=== PATIENT | female | born 1975 | race Caucasian/White ===

== ENCOUNTER → 2024-01-22 06:35 | Day surgery (SDC) | payer OTHER, SELFPAY | LOC: GI 06:35 | PROVIDERS: ATTENDING PHYSICIAN Internal Medicine Gastroenterology | DX: D12.7 Benign neoplasm of rectosigmoid junction (principal); Z86.010 Personal history of colon polyps | CPT/HCPCS: 45385; 88305 ==

== ENCOUNTER 2024-01-23 16:35 | Observation (INO) | payer OTHER, SELFPAY ==
[2024-01-23] VITALS (12 sets, daily range): BP systolic 8–144; BP diastolic 78–95
[2024-01-23 11:52] LABS: % Eosinophils 2.4 % (0-6); % Immature Granulocytes 0.1 % (0-0.5); % Monocytes 8.4 % (1.7-9.3); % Neutrophils 60.1 % (42.2-75.2); Absolute Basophils 0.1 10^3/uL (0-0.2); Absolute Eosinophils 0.2 10^3/uL (0-0.7); Absolute Monocytes 0.6 10^3/uL (0.1-0.6); Absolute Neutrophils 4.3 10^3/uL (1.4-6.5); Hematocrit 36.4 % (37.0-47.0); Hemoglobin 12.4 g/dL (12.0-16.0); Mean Corp Hgb Conc. 34.1 g/dL (33.0-37.0); Mean Corpuscular Hgb 30.8 pg (27.0-31.0); Mean Corpuscular Volume 90.5 fL (81.0-99.0); Mean Platelet Volume 10.8 fL (7.4-10.4); Nucleated Red Blood Cells % 0 %; Platelet Count 264 10^3/uL (130-400); Red Blood Cell Count 4.02 10^6/uL (4.20-5.40); Red Cell Dist. Width 13.3 % (11.5-14.5); White Blood Cell Count 7.1 10^3/uL (4.8-10.8)
[2024-01-23 12:07] LABS: ALT (SGPT) 26 U/L (0-35); AST (SGOT) 29 U/L (14-36); Albumin 4.3 g/dl (3.5-5.0); Alkaline Phosphatase 70 U/L (38-126); Blood Urea Nitrogen 10 mg/dl (7-17); Calcium 10.2 mg/dl (8.4-10.2); Carbon Dioxide 29 mmol/L (22-30); Chloride 107 mmol/L (98-107); Glucose 118 mg/dl (70-99); Potassium 4.2 mmol/L (3.5-5.1); Sodium 137 mmol/L (135-145); Total Bilirubin 0.4 mg/dl (0.2-1.3); Total Protein 6.7 g/dl (6.3-8.2); eGFR > 60.00
--- NOTE | 2024-01-23 13:52 | ED.GENMED ---
History of Present Illness
<BONNIE Meneses - Last Filed: 01/23/24 15:08>
General
Chief Complaint: Post Operative Problem(s)
Source: patient
Exam Limitations: none
Time Seen by Provider: 01/23/24 13:36
Nursing documentation reviewed up to this point in time: agreed with
Travel History
Have you had any contact with someone who has COVID-19?: No
Do you have any symptoms of coronavirus? Fever > 100 degrees, chills, cough, shortness of breath, sore throat, loss of taste or smell, muscle aches, or headache?: No
History of Present Illness
History of Present Illness:
48 yr. old female presents to the ER for evaluation. Patient had a colonoscopy yesterday by Dr. Scott and today reports had 2 episodes of dark red rectal bleeding. She was sitting on the toilet to urinate 2 separate times when she had
spontaneous dark red blood from her rectum. She was not tried to have a bowel movement. She denies any abdominal pain she was little lightheaded.
Past History
<BONNIE Meneses - Last Filed: 01/23/24 15:08>
Past History
ED Past Medical History: Seizures
ED Past Surgical History: Tonsilectomy
Social History
Tobacco: Non-smoker
Alcohol: None
Personal:
Living: with family
Employment: Employed
Family History
Family History: Other (Noncontributory)
Review of Systems
<BONNIE Meneses - Last Filed: 01/23/24 15:08>
Review of Systems
Allergies reviewed?: Yes
All Other Systems: ROS reviewed and negative except as documented in HPI and ROS
Constitutional: Reports no symptoms; Denies fever, fatigue or chills
EENT: Reports no symptoms
Respiratory: Reports no symptoms
Cardiac: Reports no symptoms
ABD/GI: Reports other (dark red blood per rectum x2 )
: Reports no symptoms
Musculoskeletal: Reports no symptoms
Skin: Reports no symptoms
Neurological: Reports no symptoms
Psychiatric: Reports no symptoms
Phy Exam
<BONNIE Meneses - Last Filed: 01/23/24 15:08>
General Physical Exam
General Presentation: no apparent distress
General age: appears stated age
General Skin: warm and dry
General Habitus: normal
General Mental: alert
General Hydration: appears well hydrated
Gastrointestinal Exam
Gastrointestinal Exam: non tender, soft and other (rectal deferred )
Neurological Exam
Neurological Exam: alert and oriented x3
Musculoskeletal Exam
Musculoskeletal Exam: full ROM
Skin Exam
Skin Exam: normal color and warm/dry
Psychiatric Exam
Psychiatric Exam: normal mood/affect
Course
<BONNIE Meneses - Last Filed: 01/23/24 15:08>
Orders/Labs/Results
Orders:
Orders
01/23/24 11:45
CMP [Comprehensive Metabolic Panel] Urgent
Complete Blood Count/With Diff Urgent
01/23/24 14:49
Propofol [Diprivan] 40 ml .ROUTE .STK-MED
01/23/24 14:53
Enema As Directed
Type: Tap water
Amount: 500ml
Frequency: x1
Location: Rectal
Comment: prior to flex this afternoon
Abnormal Lab Results
01/23/24
11:45
RBC 4.02 L 10^6/uL
(4.20-5.40)
Hct 36.4 L %
(37.0-47.0)
MPV 10.8 H fL
(7.4-10.4)
Glucose 118 H mg/dl
(70-99)
01/23/24 11:45
01/23/24 11:45
Vital Signs
Initial and Last Documented VS:
Initial Vital Signs
Temp Pulse Resp BP Pulse Ox
98.1 F 74 16 144/95 100
01/23/24 11:37 01/23/24 11:37 01/23/24 11:37 01/23/24 11:37 01/23/24 11:37
Last Documented Vital Signs
Temp Pulse Resp BP Pulse Ox
98.1 F 74 16 144/95 100
01/23/24 11:37 01/23/24 11:37 01/23/24 11:37 01/23/24 11:37 01/23/24 11:37
Store Custodian consulted with Physician
Store Custodian consulted with physician?: Yes
Name of Physician Consulted: Dulce
<Elina Cardona MD - Last Filed: 01/23/24 15:01>
Orders/Labs/Results
Orders:
Orders
01/23/24 11:45
CMP [Comprehensive Metabolic Panel] Urgent
Complete Blood Count/With Diff Urgent
01/23/24 14:49
Propofol [Diprivan] 40 ml .ROUTE .STK-MED
01/23/24 14:53
Enema As Directed
Type: Tap water
Amount: 500ml
Frequency: x1
Location: Rectal
Comment: prior to flex this afternoon
Abnormal Lab Results
01/23/24
11:45
RBC 4.02 L 10^6/uL
(4.20-5.40)
Hct 36.4 L %
(37.0-47.0)
MPV 10.8 H fL
(7.4-10.4)
Glucose 118 H mg/dl
(70-99)
01/23/24 11:45
01/23/24 11:45
Vital Signs
Initial and Last Documented VS:
Initial Vital Signs
Temp Pulse Resp BP Pulse Ox
98.1 F 74 16 144/95 100
01/23/24 11:37 01/23/24 11:37 01/23/24 11:37 01/23/24 11:37 01/23/24 11:37
Last Documented Vital Signs
Temp Pulse Resp BP Pulse Ox
98.1 F 74 16 144/95 100
01/23/24 11:37 01/23/24 11:37 01/23/24 11:37 01/23/24 11:37 01/23/24 11:37
<BONNIE Meneses - Last Filed: 01/23/24 15:08>
MDM/Problems Addressed
Differential Diagnosis Includes:
Not limited to rectal bleed anemia
MDM/Problems Addressed:
Patient is status post colonoscopy yesterday and presented with dark red rectal bleeding x 2 episodes at home. She also had 1 episode here. She reports she felt lightheaded at home. She presents awake alert no acute distress nontachycardic stable
hemoglobin at 12.4. of GI made aware reports the patient had a small polyp in the rectum removed with a cold snare�6 mm yesterday. Patient was eval by the GI nurse practitioner. Patient had 1 additional episode here as documented for
total of 3 total episodes. They will take patient for flexible sigmoidoscopy.
IV line was inserted. Patient discharged to GI lab.
Chronic conditions affecting care:
Recent colonoscopy
<BONNIE Meneses - Last Filed: 01/23/24 15:08>
*Critical Care Note
Total Time (30-74mins, 75-104mins- exclusive of procedures): Not Applicable
ED Attending Note
<BONNIE Meneses - Last Filed: 01/23/24 15:08>
-
Portions of this chart may have been created with voice recognition software.� Occasional wrong word or��sound alike� substitutions may have occurred due to the inherent limitations of voice recognition software.
<Elina Cardona MD - Last Filed: 01/23/24 15:01>
ED Attending Note
Patient seen and examined by attending physician: Yes
I performed the substantive portion of visit, reviewed & personally made and approve the management plan that is documented in note by myself or YOLETTE.: Yes
ED Attending Note:
Patient appears very well and comfortable. Abdomen is soft. Lungs are clear. Due to ongoing bleeding, patient will be brought to GI lab for repeat scope.
Discharge Plan
Departure
Patient Disposition: GI LAB
Date of Disposition: 01/23/24
Time of Disposition: 14:59
Admit to doctor: steven merchant
Presentation/result/management discussed w/ accepting MD/DO: GI DR Merchant
Patient with high blood pressure during this ER visit?: Yes
Condition: Fair
Covid-19: Not Applicable
Discharge Problem:
Rectal bleeding
Prescriptions:
No Action
ibuprofen 800 MG tablet
800 mg PO Q6HPRN PRN (Reason: pain) Qty: 30 0RF
hydrocodone-acetaminophen 1 TABLET tablet
1 tab PO QIDPRN PRN (Reason: pain) Qty: 12 0RF
gentamicin [Gentak] 1 APPLIC ointment
1 applic OPHTHALMIC QID Qty: 1 0RF
diclofenac sodium 75 mg tablet,delayed release (DR/EC)
75 mg PO BID PRN (Reason: pain) Qty: 20 0RF
Referrals:
Rolly More MD [Family Provider] -
Interventions
Interventions:
*Risk Screen - Suicide Last Done: 01/23/24 14:05
*General Assessment Last Done: 01/23/24 14:05
*Neglect/Abuse Screening Last Done: 01/23/24 14:05
*ED COVID-19 Vaccine History Last Done: 01/23/24 11:37
ED-Skin Assessment Last Done: 01/23/24 14:06
Discharge Date and Time
Print Language: CITIZEN OF [place]
--- NOTE | 2024-01-23 14:29 | CON.GI ---
Addendum entered and electronically signed by Giana Nevarez DO 01/23/24 15:03:
Briefly, Sammi is a 48 y.o. female who presents with multiple episodes of large-volume hematochezia following colonoscopy yesterday with cold snare polypectomy of 6 mm polyp in the rectosigmoid colon. Hemoglobin at baseline. Hemodynamically
stable. Suspect she is having a post-polypectomy bleed that typically is self-limiting, however, given the witnessed episode of hematochezia while in ER, will proceed with flex sig today to assess polypectomy site.
Pathology from colon polyp discussed with patient, returned as TA. Given poor prep, recommend repeat in 1 year for surveillance.
Original Note:
Consultation
-
Date/Time Consultation Requested: 01/23/24 1400
Date/Time Consultation Performed: 1430
Requesting Provider: BONNIE Perea
Performing Provider: BONNIE Mendiola, Selina Nevarez DO
Reason for Consultation: GI bleed
Medical History
Chief Complaint / HPI
Chief Complaint: rectal bleeding
History of Present Illness:
Pt is a 48yo with hx adenomatous polyps last colonoscopy 2018, seizure, bipolar, skin CA with onset of rectal bleeding after colonoscopy 01/21. Results revealed poor prep, stool in colon, 6 mm polyp recto sigmoid. Was recommended 1 year follow up
with poor prep. Path noted TA polyp. She states she was fine 01/21 and slept in afternoon then this am since 6:30am passed 3 large volume of stools with entire bowel red. Mild dizziness but denies dysphagia, GERD, vomiting, abdominal pain, or
black stools.
Past Medical History
Past Medical History: Cancer (skin CA), Seizures, Psychiatric (bipolar ) and Other (adenomatous colon polyps )
Social History
Tobacco: Non-Smoker
Alcohol: None
Drug: None
Personal:
Living: With Family
Employment: Employed
Family History
Family History: Other (father with polyps)
Allergies / Home Medications
Allergy/AdvReac Type Severity Reaction Status Date / Time
latex Allergy Rash Verified 05/08/22 00:36
�Medication �Instructions �Recorded
gentamicin 0.3 % (3 mg/gram) eye 1 applic OPHTHALMIC QID #1 tube 10/06/16
ointment (Gentak)
hydrocodone 5 mg-acetaminophen 325 1 tab PO QIDPRN PRN pain #12 tabs 10/06/16
mg tablet
ibuprofen 800 mg tablet 800 mg PO Q6HPRN PRN pain #30 tabs 10/06/16
diclofenac sodium 75 mg 75 mg PO BID PRN pain #20 tabs 05/08/22
tablet,delayed release
Review of Systems
-
History Source: Patient
Constitutional: Reports No Symptoms
EENT: Reports No Symptoms
Respiratory: Reports No Symptoms
Cardiac: Reports No Symptoms
Abdomen/GI: Reports Bloody Stools
: Reports No Symptoms
Musculoskeletal: Reports No Symptoms
Skin: Reports No Symptoms
Neurological: Reports No Symptoms
Endocrine: Reports No Symptoms
Hematologic/Lymphatic: Reports Bleeding
Vital Signs
Temp Pulse Resp BP Pulse Ox
98.1 F 74 16 144/95 100
01/23/24 11:37 01/23/24 11:37 01/23/24 11:37 01/23/24 11:37 01/23/24 11:37
Physical Exam
Exam
General: Well Developed, Well Nourished and No Apparent Distress
HEENT: Normocephalic and Anicteric
Respiratory: Clear
Cardiac: Regular Rhythm
GI: Soft
Rectal: Other (held as patient in ER hallway holding)
Musculoskeletal: No Clubbing and No Cyanosis
Skin: Warm and Dry
Neuro: Awake and Alert
Psych: Calm
Results
WBC 7.1 10^3/uL (4.8-10.8) 01/23/24 11:45
Hgb 12.4 g/dL (12.0-16.0) 01/23/24 11:45
Hct 36.4 % (37.0-47.0) L 01/23/24 11:45
MCV 90.5 fL (81.0-99.0) 01/23/24 11:45
Plt Count 264 10^3/uL (130-400) 01/23/24 11:45
Absolute Neuts (auto) 4.3 10^3/uL (1.4-6.5) 01/23/24 11:45
Sodium 137 mmol/L (135-145) 01/23/24 11:45
Potassium 4.2 mmol/L (3.5-5.1) 01/23/24 11:45
Chloride 107 mmol/L (98-107) 01/23/24 11:45
Carbon Dioxide 29 mmol/L (22-30) 01/23/24 11:45
BUN 10 mg/dl (7-17) 01/23/24 11:45
Creatinine 0.8 mg/dL (0.6-1.0) 01/23/24 11:45
Calcium 10.2 mg/dl (8.4-10.2) 01/23/24 11:45
Total Bilirubin 0.4 mg/dl (0.2-1.3) 01/23/24 11:45
AST 29 U/L (14-36) 01/23/24 11:45
ALT 26 U/L (0-35) 01/23/24 11:45
Alkaline Phosphatase 70 U/L (38-126) 01/23/24 11:45
Diagnostic Image Results:
Prior GI Procedures:
EGD: 2019 - Normal examined duodenum.
- Erythematous mucosa in the antrum. Biopsied.
- Small hiatal hernia.
- Z-line irregular, 38 cm from the incisors. Biopsied.
- No gross lesions in esophagus. Biopsied.
neg metaplasia neg H pylori
Colonoscopy: 01/22/24 [facility] revealed poor prep, stool in colon, 6 mm polyp recto sigmoid. Bx TA polyp
colonoscopy 2019- sal[facility] - Preparation of the colon was fair.
- The examined portion of the ileum was normal. Biopsied.
- The entire examined colon is normal. Biopsied.
- One 2 mm polyp in the ascending colon, removed with a
jumbo cold forceps. Resected and retrieved.
- Non-bleeding internal hemorrhoids.
bx no colitis, ileitis, proctitis TA polyp
Assessment / Plan
-
Pt is a 48yo with hx adenomatous polyps last colonoscopy 2018, seizure, bipolar, skin CA with onset of rectal bleeding after colonoscopy 01/21. Results revealed poor prep, stool in colon, 6 mm polyp recto sigmoid. Was recommended 1 year follow up
with poor prep. Path noted TA polyp. She states she was fine 01/21 and slept in afternoon then this am since 6:30am passed 3 large volume of stools with entire bowel red.
-post polypectomy bleeding
-hx TA polyps
other medical problems:
-seizure disorder
-bipolar
-skin CA
PLAN:
Etiology of bleeding likely related to recent polyp resection vs other
plan for flex today to see if can do endo therapy vs clip on polyp site
NPO -- did not eat today
hbg stable at 12.4 in ER
pending status of flex if pt will require admission
reviewed path of polyp noted tubular adenoma
reviewed with nursing, BONNIE Moore in ER, and hospitalist for coordination of care if admission needed
pt aware will need follow up colonoscopy 1 year with poor prep
-
-
Thank you for consultation and allowing me to participate in the patient's care. Please call the production line welder GI physician during the after hours with any questions or concerns.
--- NOTE | 2024-01-23 15:43 | HPS.HSE ---
Family Physician
-
Family Physician: Rolly More
Chief Complaint
-
Rectal bleeding
History of Present Illness
Patient 48 years old female with history of seizures, bipolar, skin cancer, presented to the hospital with hematochezia after recent elective colonoscopy status post cold snare polypectomy. I was able to see her at the endoscopy room right after
her procedure. She had 3 episodes of large-volume loose stools with bright blood per rectum. She also had some dizziness associated with this event. Patient denies any fevers or chills. She denies any dysphagia, abdominal pain, or melena.
Patient was taken for flexible sigmoidoscopy by GI to assess polypectomy site today on 01/22 and she had s/p clip and epi given. Postprocedure she has been having some abdominal pain in the right lower quadrant moderate intensity, crampy in nature,
associated with nausea. No chest pain or shortness of breath. Her hemoglobin noted to be 12.4. She was referred to hospitalist service for further evaluation.
Medical History
Past Medical History
Past Medical History: Reports Other (Seizures, bipolar, cancer, adenomatous colon polyps.)
Past Surgical History: Reports Other (Colonoscopy with polypectomy)
Social History
Tobacco: Non-smoker
Alcohol: None
Drug: None
Family History
Family History: Not pertinent
Allergies / Home Medications
Allergies reflects when Allergies were last updated in [facility].
Home Medications with original date entered in [facility]
Allergy/Medication List:
Allergies
Allergy/AdvReac Type Severity Reaction Status Date / Time
latex Allergy Rash Verified 05/08/22 00:36
Home Medications
gentamicin 0.3 % (3 mg/gram) eye ointment (Gentak) 1 applic OPHTHALMIC QID #1 tube 10/06/16
hydrocodone 5 mg-acetaminophen 325 mg tablet 1 tab PO QIDPRN PRN pain #12 tabs 10/06/16
ibuprofen 800 mg tablet 800 mg PO Q6HPRN PRN pain #30 tabs 10/06/16
diclofenac sodium 75 mg tablet,delayed release 75 mg PO BID PRN pain #20 tabs 05/08/22
Review of Systems
-
A 12 point ROS was completed and negative except as noted: Yes
Physical Exam
Vital Signs
Vital Signs
Temp Pulse Resp BP Pulse Ox
98.1 F 74 16 144/95 100
01/23/24 11:37 01/23/24 11:37 01/23/24 11:37 01/23/24 11:37 01/23/24 11:37
Physical exam:
General: Well Developed, Well Nourished and No Apparent Distress
HEENT: Normocephalic, Atraumatic and Moist Mucous Membranes
Respiratory: Clear to Auscultation; Negative Wheezes, Rales or Rhonchi
Cardiac: Regular Rhythm and S1/S2
GI: Soft, Nontender and Nondistended
Musculoskeletal: No Clubbing, No Cyanosis and No Edema
Neuro: Awake, Alert and Oriented
Psych: Calm
Physical Exam
General: Other
Laboratory Results
-
01/23/24 11:45
01/23/24 11:45
Laboratory Results
Total Bilirubin 0.4 mg/dl (0.2-1.3) 01/23/24 11:45
AST 29 U/L (14-36) 01/23/24 11:45
ALT 26 U/L (0-35) 01/23/24 11:45
Alkaline Phosphatase 70 U/L (38-126) 01/23/24 11:45
Impression/Plan
-
IMPRESSION:
Patient 48 years old presented to the hospital with recent post-polypectomy and lower GI bleed with hematochezia. Patient underwent flexible sigmoidoscopy by GI. It is reasonable to observe her to make sure that she does not have any recurrent
bleeding in the hospital otherwise she will require further interventions. We will also need to monitor hemoglobin closely. She also has some abdominal pain postprocedure. If pain does not resolve over the next couple hours, then I would image
her abdomen with probably a CT of the abdomen and pelvis.
Impression:
Acute lower GI bleed due to recent polypectomy
Rule out acute blood loss anemia
Abdominal pain postprocedure
Conditions prior to presentation:
Depression/bipolar
Seizures
Skin cancer
Flexible sigmoidoscopy findings by GI:
Patient taken for urgent flex sig due to c/f post-polypectomy bleeding.
Findings:
Ulcer with non-bleeding visible vessel at site of polypectomy. Active oozing following manipulation. Injected with epinephrine and 1x hemostatic clip placed with excellent hemostasis.
Recc:
-Admit for observation overnight. Monitor for rebleeding given high-risk lesion. If no bleeding overnight, okay for discharge in early AM
-Clear liquid diet, advance in AM if no evidence of recurrent bleeding
PLAN:
Clear liquid diet and advance as tolerated if asymptomatic.
Monitor hemoglobin
GI on consult--> discussed with GI in person.
Discussed with anesthesiology team.
If pain persist, may need to do CT of the abdomen pelvis
IV Tylenol as needed
SCDs for DVT prophylaxis
CODE STATUS full code
Will give further recommendations based on clinical course
Total time spent on today's encounter was 75 minutes which included time spent in counseling the patient/family regarding diagnosis and treatment plan as listed above, goals of care, and symptom management. Case was discussed with nursing staff,
specialists, and care coordinators/case management. All labs and imaging personally reviewed by me. Remainder the time spent in detailed review of previous records, lab data, imaging, and other medical provider documentation.
--- NOTE | 2024-01-23 15:48 | W.PN.UPDATE ---
Update Note
Progress Note Update
Patient taken for urgent flex sig due to c/f post-polypectomy bleeding.
Findings:
Ulcer with non-bleeding visible vessel at site of polypectomy. Active oozing following manipulation. Injected with epinephrine and 1x hemostatic clip placed with excellent hemostasis.
Recc:
-Admit for observation overnight. Monitor for rebleeding given high-risk lesion. If no bleeding overnight, okay for discharge in early AM
-Clear liquid diet, advance in AM if no evidence of recurrent bleeding
[2024-01-23] MEDS: DILAUDID 0.5 MG IV ×2 (16:38→17:39)
--- NOTE | 2024-01-23 18:45 | PTCARENOTE ---
Pt arrived via bed from pacu. Pt AAOX3. VSS. and kids at bedside. No complaints of pain. Pt ambulated to BR with out any problems. Bed in lowest position. Call pickard within reach.
[2024-01-23] MEDS: MELATONIN 5 MG PO (23:06)
[2024-01-24 03:15] VITALS: BP 105/68
[2024-01-24 06:00] LABS: Hemoglobin 11.2 g/dL (12.0-16.0); Mean Corpuscular Hgb 31.3 pg (27.0-31.0); Mean Corpuscular Volume 89.4 fL (81.0-99.0); Mean Platelet Volume 11.3 fL (7.4-10.4); Platelet Count 223 10^3/uL (130-400); Red Blood Cell Count 3.58 10^6/uL (4.20-5.40); Red Cell Dist. Width 13.2 % (11.5-14.5); White Blood Cell Count 4.8 10^3/uL (4.8-10.8)
[2024-01-24 06:28] LABS: Blood Urea Nitrogen 8 mg/dl (7-17); Calcium 9.7 mg/dl (8.4-10.2); Carbon Dioxide 29 mmol/L (22-30); Chloride 109 mmol/L (98-107); Glucose 82 mg/dl (70-99); Potassium 4.1 mmol/L (3.5-5.1); Sodium 137 mmol/L (135-145); eGFR > 60.00
--- NOTE | 2024-01-24 07:11 | W.PN.HOSP.TC ---
Today's Communication/Plan
-
Discharge planning today.
Assessment / Plan
Assessment / Plan
Physical exam:
General: Well Developed, Well Nourished and No Apparent Distress
HEENT: Normocephalic, Atraumatic and Moist Mucous Membranes
Respiratory: Clear to Auscultation; Negative Wheezes, Rales or Rhonchi
Cardiac: Regular Rhythm and S1/S2
GI: Soft, Nontender and Nondistended
Musculoskeletal: No Clubbing, No Cyanosis and No Edema
Neuro: Awake, Alert and Oriented
Psych: Calm
A/P:
Impression:
Acute lower GI bleed due to recent polypectomy
Acute blood loss anemia
Abdominal pain postprocedure, now improved.
Conditions prior to presentation:
Depression/bipolar
Seizures
Skin cancer
Flexible sigmoidoscopy findings by GI:
Patient taken for urgent flex sig due to c/f post-polypectomy bleeding.
Findings:
Ulcer with non-bleeding visible vessel at site of polypectomy. Active oozing following manipulation. Injected with epinephrine and 1x hemostatic clip placed with excellent hemostasis.
Recc:
-Admit for observation overnight. Monitor for rebleeding given high-risk lesion. If no bleeding overnight, okay for discharge in early AM
-Clear liquid diet, advance in AM if no evidence of recurrent bleeding
PLAN:
Tolerating advancing diet
Monitor hemoglobin as outpatient
Appreciated GI consult
GI cleared for discharge today
SCDs for DVT prophylaxis
CODE STATUS full code
Anticipated Discharge: Today
Subjective/Interval History
-
Date of Service: January 24, 2024
Patient doing well today. No abdominal pain. Tolerating diet without problems.
Objective Data
-
Labs:
Laboratory Results
01/24/24
05:05
WBC 4.8
Hgb 11.2 L
Hct 32.0 L
Plt Count 223
Sodium 137
Potassium 4.1
Chloride 109 H
Carbon Dioxide 29
BUN 8
Creatinine 0.8
Glucose 82
Calcium 9.7
Vital Signs:
Vital Signs
Temp Pulse Resp BP Pulse Ox
98.0 F 68 16 105/68 96
01/24/24 03:15 01/24/24 03:15 01/24/24 03:15 01/24/24 03:15 01/24/24 03:15
I&O
01/23/24 01/24/24 01/25/24
06:59 06:59 06:59
Intake Total 480 / 480
Balance 480 / 480
[2024-01-24 07:50] VITALS: BP 129/83
--- NOTE | 2024-01-24 08:19 | W.PN.GI.CBS2 ---
Today's Communication / Plan
-
Discharge today
Assessment / Plan
-
48yo with hx adenomatous polyps last colonoscopy 2018, seizure, bipolar, skin CA who presented on 01/22 for post-polypectomy bleeding following colonoscopy on 01/21.
Post-polypectomy bleed
-s/p flex sig on 01/22- Ulcer with NBVB at polypectomy site, treated with epineprhine and 1x hemostatic clip placed
-post-procedure pain 2/2 epinephrine, which resolved shortly following procedure
-hemoglobin stable this morning, no rebleeding overnight
-okay to advance diet
Hx adenomatous polyps
other medical problems:
-seizure disorder
-bipolar
-skin CA
Okay for discharge this morning.
Subjective
Subjective
Date of Service: January 24, 2024
Patient seen and examined at the bedside. Denies any abdominal pain this morning. No rectal bleeding. Offers no complaints, is ready to be discharged, when able.
Objective
Data Reviewed
Laboratory Data:
Laboratory Results
01/24/24 05:05
01/24/24 05:05
Laboratory Results
Total Bilirubin 0.4 mg/dl (0.2-1.3) 01/23/24 11:45
AST 29 U/L (14-36) 01/23/24 11:45
ALT 26 U/L (0-35) 01/23/24 11:45
Alkaline Phosphatase 70 U/L (38-126) 01/23/24 11:45
Vital Signs and I&O:
Vital Signs
Temp Pulse Resp BP Pulse Ox
98.3 F 80 16 129/83 97
01/24/24 07:50 01/24/24 07:50 01/24/24 07:50 01/24/24 07:50 01/24/24 07:50
I&O
01/23/24 01/24/24 01/25/24
06:59 06:59 06:59
Intake Total 480 / 480
Balance 480 / 480
Physical Exam
Physical Exam
HEENT: Anicteric and Moist mucous membranes
Cardiology: Normal Sinus Rhythm, S1 and S2
Pulmonary: Clear
GI: Soft, Non Distended, Non Tender and Normal Bowel Sounds
Extremities: No Edema and Pulses Present
Neuro: Non Focal
--- NOTE | 2024-01-24 10:12 | CM ---
Reviewed the chart notes and spoke with the patient at the bedside. The patient is admitted under observational status. The observational letter was provided and explained. The patient was referred back to her insurance carrier for questions with
regards to ED co-pay.
The patient resides with her spouse in a two story home with one step to enter. The patient reports no DME/VN/SNF in the past. The patient confirmed her pharmacy of choice is the [facility] [place]. continues to be available to
patient/family and is monitoring medical plan for needs at discharge.
Plan: Discharge to home when medically stable. Patient will drive self home. No needs identified at this time.
--- NOTE | 2024-01-24 11:55 | W.DCSUMMARY ---
Discharge Summary
Discharge Data
Date of Admission: 01/23/24
Date of Discharge: 01/24/24
-
Pending Results: No
Hospital Course
Patient 48 years old Femal who just had a colonoscopy and had a cold snare polypectomy in the rectosigmoid area and came back to the hospital with large hematochezia postprocedure. GI evaluated the patient and did a flexible sigmoidoscopy on 01/22
and she was found to have active oozing and ulcer with nonbleeding visible vessel at the site of polypectomy since she had injected epinephrine and hemostatic clip with excellent hemostasis. Patient did have some abdominal pain postprocedure. She
also had mild drop in her hemoglobin. She was initially placed on clear liquid diet and she was able to advance as tolerated. Patient pain resolved completely and it was felt to be related to epinephrine during procedure. Patient hemoglobin
stable and no signs of any further bleeding. GI cleared her for discharge today.
Discharge duration: 35 minutes
Discharge Plan
-
Patient Disposition: Home (Routine Discharge)
Discharge Diagnosis/Procedures: Acute lower gastrointestinal bleed post-polypectomy status post hemostatic clip by flexible sigmoidoscopy on 01/22. Acute blood loss anemia. History of seizure disorder. History of bipolar.
Diet: Low Cholesterol
Activity: As tolerated
Driving Restrictions: As prior to admission
Blood Work: Please PCP to order CBC, BMP within 1 week
Referrals:
Rolly More MD [Family Provider] - in less than 1 week
Giana Nevarez DO [Active] - in two to four weeks
Prescriptions:
Continued
zolpidem 5 mg Tablet
5 mg PO HS PRN (Reason: insomnia)
lamotrigine 200 mg Tablet
200 mg PO DAILY
Discharge Orders:
Discharge Patient (As Directed); Ordered 01/24/24
Ordered By: Rubin Salazar
Discharge Date and Time
Print Language: MACANESE
[2024-01-24 12:40] VITALS: BP 126/72
== END 2024-01-24 12:52 | disposition home or self-care (01) ==
LOC: 2 SOUTH 16:35
PROVIDERS: Emergency Medicine; ADMITTING PHYSICIAN Hospitalist; CONSULT PHYSICIAN Internal Medicine; EMERGENCY PHYSICIAN Emergency Medicine; FAMILY PHYSICIAN Internal Medicine
DX: K91.840 Postprocedural hemorrhage of a digestive system organ or structure following a digestive system procedure (principal); K63.3 Ulcer of intestine; D62 Acute posthemorrhagic anemia; Y83.8 Other surgical procedures as the cause of abnormal reaction of the patient, or of later complication, without mention of misadventure at the time of the procedure; G89.18 Other acute postprocedural pain; F31.9 Bipolar disorder, unspecified; G40.909 Epilepsy, unspecified, not intractable, without status epilepticus; Z86.010 Personal history of colon polyps
CPT/HCPCS: 45334; 80048; 80053; 85025; 85027; 99284; G0378

== ENCOUNTER 2025-01-29 06:24 | Day surgery (SDC) | payer OTHER, SELFPAY | END 2025-01-29 14:52 | disposition home or self-care (01) | LOC: GI 06:24 | PROVIDERS: ATTENDING PHYSICIAN Internal Medicine Gastroenterology | DX: Z12.11 Encounter for screening for malignant neoplasm of colon (principal); D12.3 Benign neoplasm of transverse colon; D12.4 Benign neoplasm of descending colon; D12.5 Benign neoplasm of sigmoid colon; Z86.0101 Personal history of adenomatous and serrated colon polyps | CPT/HCPCS: 45380; 88305 ==

== ENCOUNTER 2025-08-24 11:31 | Emergency (ER) | payer OTHER, SELFPAY ==
[2025-08-24] VITALS (12 sets, daily range): BP systolic 120–162; BP diastolic 79–98
[2025-08-24] MEDS: OMNIPAQUE 50 ML PO (14:25)
[2025-08-24 14:49] LABS: Hematocrit 41.3 % (37.0-47.0); Hemoglobin 12.9 g/dL (12.0-16.0); Mean Corp Hgb Conc. 31.2 g/dL (33.0-37.0); Mean Corpuscular Volume 88.8 fL (81.0-99.0); Nucleated Red Blood Cells % 0 %; Platelet Count 367 10^3/uL (130-400); Red Cell Dist. Width 15.8 % (11.5-14.5)
[2025-08-24 14:55] LABS: ALT (SGPT) 36 U/L (0-35); AST (SGOT) 30 U/L (14-36); Albumin 4.8 g/dl (3.5-5.0); Alkaline Phosphatase 118 U/L (38-126); Blood Urea Nitrogen 10 mg/dl (7-17); Calcium 9.8 mg/dl (8.4-10.2); Carbon Dioxide 30 mmol/L (22-30); Chloride 106 mmol/L (98-107); Glucose 78 mg/dl (70-99); Potassium 4.4 mmol/L (3.5-5.1); Sodium 138 mmol/L (135-145); Total Protein 8.0 g/dl (6.3-8.2); eGFR > 60.00
--- NOTE | 2025-08-24 15:56 | ED.GENMED ---
History of Present Illness
<Damien Hickman MD - Last Filed: 08/24/25 16:00>
General
Chief Complaint: Abdominal Symptoms
Source: patient
Exam Limitations: none
Time Seen by Provider: 08/24/25 11:56
Nursing documentation reviewed up to this point in time: agreed with
History of Present Illness
History of Present Illness:
Patient with history of constipation, presents to ED secondary to inability to have bowel movements despite using outpatient stool softener/laxatives. Denies fever or chills. Patient does report abdominal pain recently. Denies nausea or vomiting.
Denies trauma. Denies recent change in medications or diet. Patient has received colonoscopy as an outpatient, secondary to constipation.
Past History
<Damien Hickman MD - Last Filed: 08/24/25 16:00>
Past History
ED Past Medical History: Seizures
ED Past Surgical History: Tonsilectomy
Social History
Tobacco: Non-smoker
Alcohol: None
Personal:
Living: with family
Employment: Employed
Family History
Family History: Other (Noncontributory)
Review of Systems
<Damien Hickman MD - Last Filed: 08/24/25 16:00>
Review of Systems
Allergies reviewed?: Yes
All Other Systems: ROS reviewed and negative except as documented in HPI and ROS
Constitutional: Reports no symptoms
Respiratory: Reports no symptoms
Cardiac: Reports no symptoms
ABD/GI: Reports abdominal pain and constipated
: Reports no symptoms
Musculoskeletal: Reports no symptoms
Skin: Reports no symptoms
Neurological: Reports no symptoms
Phy Exam
<Damien Hickman MD - Last Filed: 08/24/25 16:00>
Physical Exam
Physical Exam:
Physical Exam
General: mild distress, not acutely ill. afebrile
Head: nc/at. eomi
Neck: supple. no meningeal signs.
Heart: s1/s2 regular rate and rhythm
Lungs: no acute respiratory distress. clear bilaterally
Abdomen: normal bowel sounds. mild distention without focal tendernes
Neuro: alert and oriented x 3. no focal neurological deficits
Skin: no rash
Psychiatric: well kept. interactive and cooperative
Extremities: no edema. no calf tenderness.
Course
<Damien Hickman MD - Last Filed: 08/24/25 16:00>
Orders/Labs/Results
Orders:
Orders
08/24/25 13:08
CR Obstruct Series W/pa Chest Urgent
Comment:
Reason For Exam: abdominal pain
08/24/25 14:17
Iohexol [Omnipaque] See Protocol PO NOW STA
08/24/25 14:18
CT Abd/pel W Iv And Oral Contr Urgent
Comment:
Reason For Exam: abd pain
08/24/25 14:36
Complete Blood Count/With Diff Urgent
Comprehensive Metabolic Panel Urgent
08/24/25 16:24
Ketorolac [Toradol] 15 mg IV NOW STA
Morphine Sulfate 2 mg IV NOW STA
Pantoprazole [Protonix IV] 40 mg IV NOW STA
08/24/25 21:06
Magnesium Citrate [Citroma] 300 ml PO ONCE ONE
Phosphate Enema [Fleet Phosphate Enema-Adult] 135 ml RECTAL NOW STA
08/24/25 21:12
Magnesium Citrate [Citroma] 300 ml .ROUTE .STK-MED ONE
Abnormal Lab Results
08/24/25
14:36
MCHC 31.2 L g/dL
(33.0-37.0)
RDW 15.8 H %
(11.5-14.5)
Monocytes % 9.5 H %
(1.7-9.3)
ALT 36 H U/L
(0-35)
08/24/25 14:36
08/24/25 14:36
Vital Signs
Initial and Last Documented VS:
Initial Vital Signs
Temp Pulse Resp BP Pulse Ox
98.3 F 96 16 162/91 98
08/24/25 11:35 08/24/25 11:35 08/24/25 11:35 08/24/25 11:35 08/24/25 11:35
Last Documented Vital Signs
Temp Pulse Resp BP Pulse Ox
98.3 F 89 18 123/79 100
08/24/25 11:35 08/24/25 22:27 08/24/25 22:27 08/24/25 22:27 08/24/25 22:27
<Elina Cardona MD - Last Filed: 08/24/25 23:12>
Orders/Labs/Results
Orders:
Orders
08/24/25 13:08
CR Obstruct Series W/pa Chest Urgent
Comment:
Reason For Exam: abdominal pain
08/24/25 14:17
Iohexol [Omnipaque] See Protocol PO NOW STA
08/24/25 14:18
CT Abd/pel W Iv And Oral Contr Urgent
Comment:
Reason For Exam: abd pain
08/24/25 14:36
Complete Blood Count/With Diff Urgent
Comprehensive Metabolic Panel Urgent
08/24/25 16:24
Ketorolac [Toradol] 15 mg IV NOW STA
Morphine Sulfate 2 mg IV NOW STA
Pantoprazole [Protonix IV] 40 mg IV NOW STA
08/24/25 21:06
Magnesium Citrate [Citroma] 300 ml PO ONCE ONE
Phosphate Enema [Fleet Phosphate Enema-Adult] 135 ml RECTAL NOW STA
08/24/25 21:12
Magnesium Citrate [Citroma] 300 ml .ROUTE .STK-MED ONE
Abnormal Lab Results
08/24/25
14:36
MCHC 31.2 L g/dL
(33.0-37.0)
RDW 15.8 H %
(11.5-14.5)
Monocytes % 9.5 H %
(1.7-9.3)
ALT 36 H U/L
(0-35)
08/24/25 14:36
08/24/25 14:36
Vital Signs
Initial and Last Documented VS:
Initial Vital Signs
Temp Pulse Resp BP Pulse Ox
98.3 F 96 16 162/91 98
08/24/25 11:35 08/24/25 11:35 08/24/25 11:35 08/24/25 11:35 08/24/25 11:35
Last Documented Vital Signs
Temp Pulse Resp BP Pulse Ox
98.3 F 89 18 123/79 100
08/24/25 11:35 08/24/25 22:27 08/24/25 22:27 08/24/25 22:27 08/24/25 22:27
<Elina Cardona MD - Last Filed: 08/24/25 23:12>
MDM/Problems Addressed
Differential Diagnosis Includes:
Acute constipation, acute bowel obstruction, acute ileus
MDM/Problems Addressed:
Patient reports decreased bowel movements for 2 weeks
Chronic conditions affecting care:
Patient has chronic constipation
Acute Exacerbation and/or Progression of Chronic Illness:
Patient likely has acute exacerbation of chronic constipation
<Damien Hickman MD - Last Filed: 08/24/25 16:00>
*Pulse Oximetry
SaO2: 95
Oxygen Mode of Delivery: Room air
<Elina Cardona MD - Last Filed: 08/24/25 23:12>
*Radiology
Radiology exam reviewed: radiology read reviewed
*Pulse Oximetry
Patient hypoxic: no
*Barrel Cap Setter Interpretation
Rate: Barrel Cap Setter- N/A
*Critical Care Note
Total Time (30-74mins, 75-104mins- exclusive of procedures): Not Applicable
Data Reviewed
Source: patient
<Elina Cardona MD - Last Filed: 08/24/25 23:12>
Patient Management
Social determinants of health affecting care: Living situation and Strong social support
Discussion with other providers: Other
<Elina Cardona MD - Last Filed: 08/24/25 23:12>
Update Note
Update Note:
10:15 PM patient given MiraLAX and an enema with passage of some stool. Patient states she feels slightly better and would like to go home. CT shows no sign of bowel obstruction. Patient has had no vomiting in the ED. Patient instructed to take
1-2 capfuls of MiraLAX each day until she feels she has passed a large amount of stool, and also to follow-up with her GI doctor
ED Attending Note
<Damien Hickman MD - Last Filed: 08/24/25 16:00>
-
Portions of this chart may have been created with voice recognition software.� Occasional wrong word or��sound alike� substitutions may have occurred due to the inherent limitations of voice recognition software.
Discharge Plan
Departure
Patient Disposition: Home (Routine Discharge)
Date of Disposition: 08/24/25
Time of Disposition: 22:15
Patient with high blood pressure during this ER visit?: No
Condition: Good
Covid-19: Not Applicable
Discharge Problem:
Constipation
Instructions: Constipation, Adult (DC)
Prescriptions:
No Action
lamotrigine 200 mg Tablet
200 mg PO DAILY
fluoxetine [Prozac] 40 mg Capsule
40 mg PO DAILY
Fleet Enema 19-7 gram/118 mL Enema
118 ml TN DAILYPRN PRN (Reason: CONSTIPATION)
simethicone [Gas-X] 80 mg Tablet,Chewable
80 mg PO DAILYPRN PRN (Reason: GAS PAIN)
Laxative (bisacodyl) 5 mg Tablet
5 mg PO DAILYPRN PRN (Reason: CONSTIPATION)
Referrals:
Karthikeyan Nunez DO [Family Provider, Family Practice]
Josette Scott MD [Active, Gastroenterology]
Referral Note: Call tomorrow to schedule an appointment for soon as possible
Activity Restrictions/Additional Instructions:
Please use 1-2 capfuls of MiraLAX (dissolved in water) every day until you have a large, soft bowel movement. Once you have a large soft bowel movement, you can stop taking MiraLAX. Please call Dr. Scott's office to let them know what is going
on and to schedule an appointment in the office.
Interventions
Interventions:
*Risk Screen - Suicide Last Done: 08/24/25 11:35
*General Assessment Last Done: 08/24/25 13:15
*Neglect/Abuse Screening Last Done: 08/24/25 11:35
*ED- Fall Risk Assessment Last Done: 08/24/25 13:15
*ED COVID-19 Vaccine History Last Done: 08/24/25 13:12
*ED Influenza Vaccine History Last Done: 08/24/25 13:12
*Nursing Disposition Last Done: 08/24/25 22:27
BM-Fbaqkk-Vecrlyteum Assessment Last Done: 08/24/25 13:15
Discharge Date and Time
Discharge Date/Time: 08/24/25 22:28
Print Language: HONG K[place]
[2025-08-24] MEDS: PROTONIX IV 40 MG IV (16:31)
[2025-08-24] MEDS: TORADOL 15 MG IV (16:31)
[2025-08-24] MEDS: MORPHINE SULFATE 2 MG IV (17:24)
[2025-08-24] MEDS: CITROMA 300 ML PO (21:16)
[2025-08-24] MEDS: FLEET PHOSPHATE ENEMA-ADULT 135 ML RECTAL (21:16)
== END 2025-08-24 22:28 | disposition home or self-care (01) ==
LOC: EMR 11:31
PROVIDERS: EMERGENCY PHYSICIAN Emergency Medicine; FAMILY PHYSICIAN Family Medicine
DX: K59.09 Other constipation (principal)
CPT/HCPCS: 99284; 96374; 96375 ×2; 74022; 74177; 80053; 85025; Q9967